=== PATIENT | female | born 1980 | race Caucasian/White ===

== ENCOUNTER 2021-01-31 21:07 | Emergency (ER) | payer MEDICAID, SELFPAY ==
[2021-01-31 21:07] VITALS: BP 109/71; PULSE 85; RESP 16; TEMP 36.2; O2SAT 97; BMI 25.5
--- NOTE | 2021-01-31 21:26 | RAD_ITS ---
HISTORY: Trauma, fall EXAMINATION/TECHNIQUE: XR Pelvis 1 or 2 Views: AP pelvis COMPARISON: None FINDINGS: PELVIC BONES: No displaced fracture, destructive or sclerotic lesions. Note that overlapping bowel shadows may however obscure fine detail. Sacroiliac joints are unremarkable. No widening of the pubic symphisis. HIPS: The articular structures are unremarkable. No displaced fracture seen in this frontal view. SOFT TISSUES: No soft tissue swelling or gas. RAD/Pelvis 1 or 2 Views IMPRESSION: No evidence of displaced pelvic or hip fracture. at 2201 Reported and signed by: Iker Villegas MD Electronically Signed: Iker Villegas MD at 22:00 EDT Tel , Service support ,
--- NOTE | 2021-01-31 21:26 | RAD_ITS ---
HISTORY: Trauma, fall EXAMINATION/TECHNIQUE: XR Ankle Min 3 Views: COMPARISON: None FINDINGS: BONES/JOINTS: No acute fracture or dislocation. Preservation of the joint spaces. No sclerotic or destructive changes observed. SOFT TISSUES: No soft tissue swelling or gas. No radiopaque foreign body. RAD/Ankle min 3 Views IMPRESSION: No acute bony abnormality. at 2200 Reported and signed by: Iker Villegas MD Electronically Signed: Iker Villegas MD at 21:59 EDT Tel , Service support ,
--- NOTE | 2021-01-31 21:26 | RAD_ITS ---
HISTORY: Trauma, fall EXAMINATION/TECHNIQUE: XR Spine Lumbar 2 or 3 Views: 3 views COMPARISON: None FINDINGS: VERTEBRAE: Preserved vertebral body height. No acute fracture. No spondylolisthesis. Preservation of the normal lumbar lordosis. DISCS: Disc spaces are maintained. INCLUDED ABDOMEN: Included bowel gas pattern is non-obstructive. RAD/Lumbar Spine 2 or 3 Views IMPRESSION: No acute findings. at 2159 Reported and signed by: Iker Villegas MD Electronically Signed: Iker Villegas MD at 21:58 EDT Tel , Service support ,
--- NOTE | 2021-01-31 22:30 | RAD_ITS ---
HISTORY: Trauma, injury EXAMINATION/TECHNIQUE: XR Tibia/Fibula 2 Views: COMPARISON: None FINDINGS: BONES/JOINTS: No acute fracture or dislocation. Preservation of the joint spaces. No sclerotic or destructive changes observed. SOFT TISSUES: No soft tissue swelling or gas. No radiopaque foreign body. RAD/Tibia & Fibula 2 Views IMPRESSION: No acute bony abnormality. at 2341 Reported and signed by: Iker Villegas MD Electronically Signed: Iker Villegas MD at 23:40 EDT Tel , Service support ,
--- NOTE | 2021-01-31 22:53 | EX.ED.DYSGE1 ---
HPI History of Present Illness Chief Complaint: Fall Informant: patient Narrative Narrative: .40-year-old female slipped in the shower falling down onto her buttocks injuring the right ankle and her buttock/low back. Patient denies any loss of conscious. No bleeding. PFSH [facility] Medical History (Updated 01/31/21 @ 22:[address] Stefan Wright DO) Depression Home Medications escitalopram oxalate 20 mg DAILY 01/31/21 [History Last Taken Unknown] levonorgestrel-ethinyl estrad 1 tab DAILY 01/31/21 [History Last Taken Unknown] Allergy/AdvReac Type Severity Reaction Status Date / Time No Known Allergies Allergy Verified 01/31/21 21:07 no surgical history Social History (Updated 01/31/21 @ 22:[address] Stefan Wright DO) Smoking Status: Never smoker substance use type: does not use ROS ROS ED Constitutional Constitutional ED: Denies chills or weight loss Eyes Eyes: Denies change in vision or diplopia ENT ENT ED: Denies ear pain, rhinorrhea or sore throat Cardiovascular Cardiovascular: Denies chest pain, orthopnea, palpitations or racing heartbeat Respiratory/Chest Respiratory/Chest: Denies cough, dyspnea or orthopnea Gastrointestinal Gastrointestinal: Denies abdominal pain, diarrhea, nausea or vomiting Genitourinary Genitourinary ED: Denies dysuria, hematuria or urinary frequency Musculoskeletal Musculoskeletal: Reports back pain and other Details: Left ankle pain ; Denies arthralgias or myalgias Integumentary Denies abscess or rash Neurologic Neurologic: Denies headache(s) or weakness Psychiatric Psychiatric: Denies anxiety, depression, suicidal ideation or suicidal thoughts Endocrine Endocrinology: Denies polydipsia, polyphagia or polyuria Allergic/Immunologic Allergic/Immunologic ED: Denies mouth swelling, tongue swelling or urticaria EXAM Physical Exam Const Vital Signs: 01/31/21 21:07 01/31/21 22:30 Temperature 97.1 F L Temperature Source Temporal Pulse Rate 85 Respiratory Rate 16 Respiratory Effort Normal Blood Pressure 109/71 Blood Pressure Mean 83 Pulse Ox 97 Oxygen Delivery Method Room Air Positive well nourished and well developed General Appearance ED: well developed HEENT Reports normocephalic, head/scalp atraumatic and moist mucous membranes Eyes PERRL and EOMs intact bilaterally Neck no lymphadenopathy, supple and no JVD Resp normal respiratory effort and clear to auscultation bilaterally Cardio regular rate, regular rhythm and no murmurs GI normal to inspection, nondistended, normoactive bowel sounds and non-tender Palpation: soft Back/Spine no CVA tenderness and normal ROM Back/Spine Narrative: Tender to palpation over the lower lumbar sacral region. No deformity no ecchymosis seen. Extremity Extremity Narrative: Patient has tenderness to palpation over the anterior surface of the left ankle and the distal left leg. She also has tenderness over the fibular head General Extremety ED: Negative for edema General Extremity: Negative for edema Neuro oriented x3 and CN's II-XII intact bilaterally Sensorium / Orientation: alert Motor Exam: strength 5/5 throughout Psych mental status grossly normal Mood & Affect: Negative for depressed or tearful Skin no rashes or lesions noted and no wounds MDM MDM MDM Narrative Medical decision making narrative: My interpretation of the plain films of the tib-fib, ankle, lumbar spine, and pelvis is negative for fracture. Patient will have Alex wrap and crutches. Follow-up as needed. Radiography Diagnostic Testing: Radiology Impression Ankle X-Ray 01/31/21 21:26 IMPRESSION: No acute bony abnormality. at 2200 Reported and signed by: Iker Villegas MD Electronically Signed: Iker Villegas MD at 21:59 EDT Tel , Service support , Lumbar Spine X-Ray 01/31/21 21:26 IMPRESSION: No acute findings. at 2159 Reported and signed by: Iker Villegas MD Electronically Signed: Iker Villegas MD at 21:58 EDT Tel , Service support , Pelvis X-Ray 01/31/21 21:26 IMPRESSION: No evidence of displaced pelvic or hip fracture. at 2201 Reported and signed by: Iker Villegas MD Electronically Signed: Iker Villegas MD at 22:00 EDT Tel , Service support , Discharge Plan Triage Chief Complaint: Fall ED Provider: Stefan Wright Dx/Rx/DC Orders Clinical Impression: High ankle sprain Instructions: ED Ankle Sprain (Adult) Prescriptions: No Action levonorgestrel-ethinyl estrad 0.15-0.03 mg tablet 1 tab DAILY RF: 0 escitalopram oxalate 10 mg tablet 20 mg DAILY RF: 0 Primary Care Provider: Tanika Bella NP Referrals: Tanika Bella NP, CERTIFIED REGISTERED NURSE ANESTHETIST-C [Primary Care Provider] - 10-14 Days if not better Disposition Disposition: Home, self care
[2021-01-31 23:14] VITALS: PULSE 74; RESP 16
== END 2021-01-31 23:14 | disposition home or self-care (01) ==
PROVIDERS: Emergency Provider Emergency Medicine; PCP Nurse Practitioner Primary Care
DX: S93.401A Sprain of unspecified ligament of right ankle, initial encounter (principal); F32.9 Major depressive disorder, single episode, unspecified; W01.0XXA Fall on same level from slipping, tripping and stumbling without subsequent striking against object, initial encounter; Z79.899 Other long term (current) drug therapy; Z79.3 Long term (current) use of hormonal contraceptives
CPT/HCPCS: 72100; 72170; 73590; 73610; 99283

== ENCOUNTER 2021-03-21 17:17 | Emergency (ER) | payer MEDICAID, SELFPAY ==
[2021-03-21 17:19] VITALS: BP 101/71; PULSE 91; RESP 14; TEMP 36.1; O2SAT 97; BMI 25.4
--- NOTE | 2021-03-21 17:33 | ED.VIS.LOWEX ---
HPI History of Present Illness Chief Complaint: Lower Extremity Injury Informant: patient and spouse/S.O. Narrative Narrative: 41-year-old female presents to the emergency room with left ankle injury. Patient was going the stairs when she slipped and fell. She states that she felt a crack in her ankle. She notes pain over the anterior aspect of the ankle with some mild swelling. Patient was seen last month with ankle sprain and already has crutches. She states that that injury healed itself up well. PFSH PFS Medical History Depression Home Medications escitalopram oxalate 20 mg DAILY 01/31/21 [History Last Taken Unknown] levonorgestrel-ethinyl estrad 1 tab DAILY 01/31/21 [History Last Taken Unknown] Allergy/AdvReac Type Severity Reaction Status Date / Time No Known Allergies Allergy Verified 03/21/21 17:18 Social History Smoking Status: Never smoker substance use type: does not use ROS ROS ED Constitutional Constitutional ED: Denies chills or weight loss Eyes Eyes: Denies change in vision or diplopia ENT ENT ED: Denies ear pain, rhinorrhea or sore throat Cardiovascular Cardiovascular: Denies chest pain, orthopnea, palpitations or racing heartbeat Respiratory/Chest Respiratory/Chest: Denies cough, dyspnea or orthopnea Gastrointestinal Gastrointestinal: Denies abdominal pain, diarrhea, nausea or vomiting Genitourinary Genitourinary ED: Denies dysuria, hematuria or urinary frequency Musculoskeletal Musculoskeletal: Reports other Details: See history of present illness ; Denies arthralgias or myalgias Integumentary Denies abscess or rash Neurologic Neurologic: Denies headache(s) or weakness Psychiatric Psychiatric: Denies anxiety, depression, suicidal ideation or suicidal thoughts Endocrine Endocrinology: Denies polydipsia, polyphagia or polyuria Allergic/Immunologic Allergic/Immunologic ED: Denies mouth swelling, tongue swelling or urticaria EXAM Physical Exam Const Vital Signs: 03/21/21 17:19 Temperature 97 F L Temperature Source Temporal Pulse Rate 91 Respiratory Rate 14 Blood Pressure 101/71 Blood Pressure Mean 81 Pulse Ox 97 Oxygen Delivery Method Room Air Positive well nourished and well developed General Appearance ED: well developed HEENT Reports normocephalic, head/scalp atraumatic and moist mucous membranes Eyes PERRL and EOMs intact bilaterally Neck no lymphadenopathy, supple and no JVD Resp normal respiratory effort and clear to auscultation bilaterally Cardio regular rate, regular rhythm and no murmurs GI normal to inspection, nondistended, normoactive bowel sounds and non-tender Palpation: soft Back/Spine no CVA tenderness and normal ROM Extremity Extremity Narrative: No fibular head tenderness. No fifth metatarsal pain. There is some mild swelling anteriorly over the distal left leg and ankle. No obvious deformity. General Extremety ED: Negative for edema General Extremity: Negative for edema Neuro oriented x3 and CN's II-XII intact bilaterally Sensorium / Orientation: alert Motor Exam: strength 5/5 throughout Psych mental status grossly normal Mood & Affect: Negative for depressed or tearful Skin no rashes or lesions noted and no wounds MDM MDM MDM Narrative Medical decision making narrative: My interpretation of the plain films of the left ankle is no acute fracture. Patient Aircast placed. Crutches as needed. Radiography Diagnostic Testing: Radiology Impression Ankle X-Ray 03/21/21 17:40 IMPRESSION: Normal x-ray examination of the ankle. Electronically Signed: Dm Cavazos MD at 18:22 EDT , Service support , Discharge Plan Triage Chief Complaint: Lower Extremity Injury ED Provider: Stefan Wright Dx/Rx/DC Orders Clinical Impression: Left ankle sprain Instructions: ED Ankle Sprain (Adult) Prescriptions: No Action levonorgestrel-ethinyl estrad 0.15-0.03 mg tablet 1 tab DAILY RF: 0 escitalopram oxalate 10 mg tablet 20 mg DAILY RF: 0 Primary Care Provider: Tanika Bella NP Referrals: Nereida Govea DPM [STAFF PHYSICIAN] - 10-14 Days if not better Tanika Bella NP, LENS BLOCKER-C [Primary Care Provider] - Disposition Disposition: Home, Self Care
--- NOTE | 2021-03-21 17:40 | RAD_ITS ---
STUDY: X-RAY - LEFT ANKLE REASON FOR EXAM: Female, 41 years old. injury TECHNIQUE: 3 view(s) of the ankle. COMPARISON: None. FINDINGS: Normal visualized distal tibia and fibula. Normal medial and lateral malleoli. Normal tibiotalar articulation and ankle mortise. Normal visualized talus and calcaneus. The visualized subtalar, talonavicular, calcaneocuboid and tarsal articulations are normal. There is no demonstrated fracture. The soft tissue structures are unremarkable. RAD/Ankle min 3 Views IMPRESSION: Normal x-ray examination of the ankle. Electronically Signed: Dm Cavazos MD at 18:22 EDT , Service support ,
== END 2021-03-21 18:58 | disposition home or self-care (01) ==
PROVIDERS: Emergency Provider Emergency Medicine; PCP Nurse Practitioner Primary Care
DX: S93.402A Sprain of unspecified ligament of left ankle, initial encounter (principal); W10.9XXA Fall (on) (from) unspecified stairs and steps, initial encounter; Y93.9 Activity, unspecified; Y92.9 Unspecified place or not applicable; Y99.9 Unspecified external cause status
CPT/HCPCS: 73610; 99283

== ENCOUNTER 2021-03-29 18:05 | Emergency (ER) | payer MEDICAID, SELFPAY ==
[2021-03-29 18:06] VITALS: BP 125/105; PULSE 89; RESP 14; TEMP 36.3; O2SAT 99; BMI 25.7
--- NOTE | 2021-03-29 20:17 | EDS_ITS ---
HPI History of Present Illness Chief Complaint: Lower Extremity Injury Narrative Narrative: Patient presenting for evaluation secondary to leg pain. Patient states that about a week ago she suffered a sprained left ankle. Since then she has been wearing an Aircast, and performing conservative management measures. Patient states that on her way to work today she had a sudden onset of a severe crampy feeling over the anterior portion of her rincon. States that this was not associated with calf cramping. She denies any numbness or weakness. She denies any new injuries. Patient was concerned about this new onset of pain, so she presented to the emergency department for further evaluation. [facility] Medical History Depression Home Medications escitalopram oxalate 20 mg DAILY 01/31/21 [History Last Taken Unknown] levonorgestrel-ethinyl estrad 1 tab DAILY 01/31/21 [History Last Taken Unknown] Allergy/AdvReac Type Severity Reaction Status Date / Time No Known Allergies Allergy Verified 03/29/21 18:08 Social History Smoking Status: Never smoker substance use type: does not use ROS ROS ED Constitutional Constitutional ED: Denies fever(s) Cardiovascular Cardiovascular: Denies chest pain Respiratory/Chest Respiratory/Chest: Denies dyspnea Musculoskeletal Musculoskeletal: Reports myalgias Integumentary Denies rash Neurologic Neurologic: Denies paresthesias or weakness Hematologic/Lymphatic Hematologic/Lymphatic: Denies easy bleeding or easy bruising EXAM Physical Exam Const Vital Signs: 03/29/21 18:06 Temperature 97.3 F L Temperature Source Temporal Pulse Rate 89 Respiratory Rate 14 Blood Pressure 125/105 H Blood Pressure Mean 111 Pulse Ox 99 Oxygen Delivery Method Room Air Positive well nourished and well developed General Appearance ED: well developed and NAD Neck full ROM Resp normal respiratory effort Cardio regular rate and regular rhythm Extremity Extremity Narrative: Examination the patient's left lower extremity shows minimal pain over the rincon area of the left leg. Normal dorsiflexion plantarflexion. Normal distal sensation and pulses. Normal capillary refill. No swelling of the ankle or tenderness to palpation. Calf is supple no palpable cord. No pain behind the knee or up in the thigh or groin area. Neuro oriented x3 Sensorium / Orientation: alert MDM MDM MDM Narrative Medical decision making narrative: Patient is presenting with rincon pain status post a ankle sprain. She has no signs or symptoms that this is associated with a new injury, this is not neurologic, this is not vascular she has great pulses not concerned for the possibility of DVT given the location of the patient's pain. Likely I believe the patient has either a tendinitis or muscle strain secondary to an antalgic gait. Patient will be placed in a walking boot. She was recommended continued conservative management measures. Patient was discharged in stable Discharge Plan Triage Chief Complaint: Lower Extremity Injury ED Provider: Chay Liang Dx/Rx/DC Orders Clinical Impression: Left ankle sprain Instructions: ED Ankle Sprain (Adult) Prescriptions: No Action levonorgestrel-ethinyl estrad 0.15-0.03 mg tablet 1 tab DAILY RF: 0 escitalopram oxalate 10 mg tablet 20 mg DAILY RF: 0 Primary Care Provider: Tanika Bella NP Referrals: Tanika Bella NP, EARLY CHILDHOOD SPECIAL EDUCATOR-C [Primary Care Provider] - As Needed Disposition Disposition: Home, Self Care
== END 2021-03-29 20:44 | disposition home or self-care (01) ==
PROVIDERS: Emergency Provider Emergency Medicine; PCP Nurse Practitioner Primary Care
DX: S93.402A Sprain of unspecified ligament of left ankle, initial encounter (principal); X58.XXXA Exposure to other specified factors, initial encounter; Y93.9 Activity, unspecified; Y92.9 Unspecified place or not applicable; Y99.9 Unspecified external cause status
CPT/HCPCS: 99283

== ENCOUNTER 2021-07-26 05:28 | Day surgery (SDC) | payer MEDICAID, SELFPAY ==
--- NOTE | 2021-07-25 17:17 | HP.PCM_ITS ---
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: No Is patient in pain?: No Allergies No Known Allergies Allergy (Verified 07/19/21 10:49) Medications multivitamin no.47-iron fum 27 mg-folate no.1 1 mg-dha 300 mg capsule 1 cap PO DAILY 07/11/21 [History Confirmed 07/25/21] Post menopausal: No Patient : Yes : No PFSH Medical History Bruising Depression High ankle sprain Left ankle sprain Non-smoker Surgical History History of dental surgery Family History Mother Diabetes Hypertension Father Diabetes Hypertension Social History household members: family housing: house number of children: 2 current occupational status: employed current occupation: [employer] pets and animals: Yes Smoking Status: Never smoker second hand exposure: No alcohol intake: never substance use type: does not use seatbelt use: always do you feel safe at home: Yes additional social history: - [place] follow up D&C SAB Details: VIRGINIA GUTIERREZ is a 41 year old who presents for follow up miscarriage. She tried 2 doses of cytotec with minimal bleeding. She is ready for a D&C if ultrasound today shows retained products Pregancy History 3 Elective abortions Hx Para 2 Spontaneous abortions 1 Hx # Term Pregnancies Ectopic pregnancies Hx # Pregnancies Multiple births # of living children 2 Past Pregnancies Del. Date Name GA/Weeks Outcome Route Bth Weight Gen Labor Lgth Anesthesia Del Locatn Provider FOB 03/30/11 Iftikhar 41 live - full term 7lbs 7oz Male 16 hours epidural [facility] Dr. Anand Beckham 11/07/14 Link 40 live - full term 7lbs 5oz Male 7-8 hours epidural Xin Beckham Delivery Date: 03/30/11 Ovarian torsion at 7 months Deja Chavez Delivery Date: 11/07/14 no complications Deja Chavez ROS Const ROS Unobtainable: All systems reviewed & are unremarkable except as noted in H Resp Resp: Reports system reviewed and no additional complaints, except as documented; Denies cough GI GI: Reports as per HPI Psych Psych: Reports system reviewed and no additional complaints, except as documented Exam Const General: cooperative, healthy appearing, comfortable and no acute distress Resp Effort & Inspection: normal respiratory effort Speculum Exam - Vagina: normal appearance of the vagina Speculum Exam - Cervix: normal appearance of the cervix Bimanual Exam- Vagina & Uterus: normal bimanual exam Other: Bedside ultrasound still shows the presence of a 6 week IUP without heart tones. Skin General: no rashes or lesions noted Psych Appearance: grossly normal Speech and Movement: speech and movement normal Coding Level of Care Code Off vis,est,level 3 Diagnoses Incomplete O03.4 Assessment and Plan Assessment and Plan (1) Incomplete : Status: Acute Plan - Dr. Virginia Babcock DO: Discussed risks of surgery including risks of anesthesia, bleeding, infection, uterine perforation, possible laparoscopy if this happens due to risk of injury to bowel, bladder or vasculature. plan for suction D&C tomorrow am (07/26/2021) rx's for motrin and percocet sent to pharmacy for after care. Consent form signed. UPDATE- I have seen the patient and performed any clinically relevant updates to the history and physical exam. Virginia Babcock DO
[2021-07-26 06:30] VITALS: BP 109/70; PULSE 76; RESP 18; TEMP 36.9; O2SAT 100; BMI 27.8
[2021-07-26] MEDS: Lactated Ringers 1,000 ML 15 ML IV (06:35)
[2021-07-26 06:48] LABS: Hematocrit 39.1 % (37-47); Hemoglobin 12.8 g/dL (12.0-15.0); Mean Corp Hgb Conc 32.7 g/dL (32-36); Mean Corpuscular Hgb 28.6 pg (27.0-32.0); Mean Corpuscular Volume 87.5 fL (81-99); Mean Platelet Vol. 9.7 fl (6.2-12.0); Platelet Count 217 K/mm3 (150-450); RBC Distribution Width CV 13.3 % (11.6-14.6); RBC Distribution Width SD 42.8 fl (35.1-43.9); Red Blood Count 4.47 M/mm3 (4.2-5.4); White Blood Count 6.3 K/mm3 (4.4-11.0)
--- NOTE | 2021-07-26 07:22 | PCM.DC ---
Discharge Instructions Diet Discharge Diet: No restrictions Activity Discharge Activity: Return to Normal Activity, May Shower and May Take a Tub Bath (after 1 week) May resume sexual activity in: 1-2 weeks Weight Bearing Status: Weight bearing as tolerated Lifting Restrictions: none Dressing / Incision Call your doctor if you observe: Fever of 101 or Higher, Using more than 1 pad per hour, Shortness of breath and Uncontrolled pain Follow Up Care Please Follow Up With: Constanza Babcock DO When: Call [phone] to schedule appointment. Test Results: Test results from this visit will be discussed in further detail at your follow-up appointment, if applicable. Discharge Plan Admission Attending Provider: Constanza Babcock Primary Care Provider: Tanika Bella NP Discharge Orders/Prescriptions Prescriptions: No Action PNV-DHA 27 mg iron-1 mg -300 mg capsule 1 cap PO DAILY RF: 0 ibuprofen 800 mg tablet 800 mg PO Q8H PRN (Reason: pain) 7 Days Qty: 21 RF: 0 oxycodone-acetaminophen [Percocet] 5-325 mg tablet 1 tab PO Q4H PRN (Reason: pain) 3 Days Qty: 18 RF: 0
--- NOTE | 2021-07-26 07:30 | POC_PTH ---
PATIENT: VIRGINIA GUTIERREZ [place] [facility] [place] U[place][id number] AGE/SX: 41/F ROOM: RE07/26/[address]: Dr. Virginia Babcock DO : 1980 BED: DIS: 07/26/2021 SPEC #: [id number] RECD: 07/26/21 08:17 STATUS: WHITNEY MOONEYDorota #: [id number] KIARA: 07/26/21 07:[address]: Virginia Babcock DEPT: SURGICAL PATHOLOGY RECD BY: Keira Lira ENTERED: 07/26/21 09:43 SP TYPE: PROD CONC OTHR DR: Tanika Bella, CHIP Tissues: Product of conception, NOS Procedures: Surgery Specimen Level IV HEADER OPERATION: Suction dilation and curettage PRE-OP DIAGNOSIS: Incomplete TISSUE SUBMITTED: Products of conception MICROSCOPIC DIAGNOSIS Products of conception: Decidua and immature chorionic villi (products of conception). SJ:анна 07/27/2021 MICROSCOPIC DESCRIPTION Slides are reviewed. GROSS DESCRIPTION Received in fixative is one container labeled with the patient's name and designated products of conception. The specimen consists of multiple irregular fragments of gonzalez-pink soft tissue that in aggregate measure 5 x 5 x 2 cm. tissue is not identified. Waiter/Waitress Cabin Class tissue is submitted in two cassettes. / JACKSON:анна 07/26/21 TC:5 CPT: 19235
[2021-07-26] MEDS: Lidocaine 1% (20 ml mdv) 20 ML Vial (07:39)
[2021-07-26 08:05] VITALS: BP 100/69; BP 109/70; PULSE 76; RESP 18; TEMP 36.2; O2SAT 100
[2021-07-26 08:10] VITALS: BP 105/71; BP 109/70; PULSE 67; RESP 18; O2SAT 100
[2021-07-26 08:15] VITALS: BP 109/70; BP 91/64; PULSE 68; RESP 18; O2SAT 100
[2021-07-26 08:20] VITALS: BP 100/58; BP 109/70; PULSE 66; RESP 18; TEMP 36.4; O2SAT 100
--- NOTE | 2021-07-26 08:33 | PCM.OP.BLANK ---
Problems Associated Problem List Diagnoses (1) Incomplete : (2) AMA (advanced maternal age) multigravida 35+: (3) : (4) Supervision of high risk , antepartum: Operative Report Date of Procedure: 07/26/21 Pre-op diagnosis: with incomplete measuring 6 weeks, failed medical management Pos-op diagnosis: with incomplete measuring 6 weeks, failed medical management Procedure: Suction dilation and Curettage Surgeon: Dr. Constanza Babcock DO Author: computer support technician EBL: 50cc Urine output:50cc fluids:600cc crystalloid Anesthesia: MAC/Local Complications: none Specimen removed: Products of conception Patient was taken to the operating room and placed under MAC local anesthesia. She was prepped and draped in the normal sterile fashion the dorsal lithotomy position. Bladder was drained of clear urine and anterior lip of the cervix was grasped and the uterus sounded to 8cm. Cervix was progressively dilated to allow passage of a 8 curved suction curette. Progressive passes were made removing the retained products of conception without complication. Sharp curettage confirmed complete removal of the retained products. All instruments were removed from the vagina and excellent hemostasis was noted and the patient was taken to recovery in stable condition. Multi Select Codes Urinary/Genital Urinary/Genital CPT Codes: 52804 Surg Trtmt missed Ab 1TM
[2021-07-26 08:45] VITALS: BP 109/70; BP 93/61; PULSE 66; RESP 16; TEMP 36.6; O2SAT 100
== END 2021-07-26 08:54 | disposition home or self-care (01) ==
LOC: SDC 05:29 → AC 07:40
PROVIDERS: PCP Nurse Practitioner Primary Care; Referring Provider Obstetrics & Gynecology; Visit Provider Obstetrics & Gynecology
PROC: (CPT 59812; principal; 2021-07-26 07:15)
DX: O03.4 Incomplete spontaneous abortion without complication (principal); O09.521 Supervision of elderly multigravida, first trimester; O09.91 Supervision of high risk pregnancy, unspecified, first trimester; Z3A.01 Less than 8 weeks gestation of pregnancy
CPT/HCPCS: 59812; 85027; 86850; 86900; 86901; 87426; 88305; J7120; J2405

== ENCOUNTER 2022-06-04 14:39 | Emergency (ER) | payer BC, MEDICAID, SELFPAY ==
[2022-06-04 14:40] VITALS: BP 109/68; PULSE 74; RESP 16; TEMP 36.5; O2SAT 97; BMI 27.4
--- NOTE | 2022-06-04 14:58 | CT_ITS ---
STUDY: CT CERVICAL SPINE WITHOUT CONTRAST REASON FOR EXAM: Female, 42 years old. Injury/Pain RADIATION DOSAGE (If Supplied By Facility): CTDIvol = ( 20.05 ) mGy, DLP = ( 356.72 ) mGycm TECHNIQUE: High resolution transaxial imaging was performed without contrast material. Sagittal and coronal images were reconstructed. Individualized dose optimization techniques were used for this CT. COMPARISON: None FINDINGS: Normal craniovertebral junction. Normal anterior atlantoaxial articulation. Normal odontoid process. There is straightening of the normal cervical lordosis. Normal vertebral bodies and posterior osseous elements. C2-3: Normal endplates. Normal disc height and morphology. Normal central canal and intervertebral neuroforamina. C3-4: Normal endplates. Normal disc height and morphology. Normal central canal and intervertebral neuroforamina. C4-5: Normal endplates. Normal disc height and morphology. Normal central canal and intervertebral neuroforamina. C5-6: Normal endplates. Normal disc height and morphology. Normal central canal and intervertebral neuroforamina. C6-7: Normal endplates. Normal disc height and morphology. Normal central canal and intervertebral neuroforamina. C7-T1: Normal endplates. Normal disc height and morphology. Normal central canal and intervertebral neuroforamina. Normal visualized soft tissue structures. CT/Spine Cervical without Contras IMPRESSION: Straightening of the normal cervical lordosis. Electronically Signed: Rajiv Mckeon MD at 15:42 EDT ,
--- NOTE | 2022-06-04 14:58 | CT_ITS ---
STUDY: CT BRAIN WITHOUT CONTRAST REASON FOR EXAM: Female, 42 years old. Fall down 12 steps. Loss of consciousness. RADIATION DOSAGE (If Supplied By Facility): CTDIvol = ( 44.99 ) mGy, DLP = ( 863.60 ) mGycm TECHNIQUE: Transaxial CT imaging of the brain was performed without administration of intravenous contrast material. Individualized dose optimization techniques were used for this CT. COMPARISON: Comparison is made with prior study dated 02/28/2013. FINDINGS: Normal soft tissue structures. Normal calvarium. Normal size ventricles and extra-axial spaces for the patient''s age. Normal white matter tracts of the cerebral hemispheres. Normal basal ganglia and thalami. Normal brainstem. Normal cerebellum. There is no intracranial hemorrhage. There are no findings of an acute ischemic infarction. Normal visualized paranasal sinuses. CT/Brain/Head without Contrast IMPRESSION: Normal unenhanced CT scan of the brain. Electronically Signed: Rajiv Mckeon MD at 15:41 EDT ,
--- NOTE | 2022-06-04 15:20 | RAD_ITS ---
STUDY: X-RAY - PELVIS AND LEFT HIP REASON FOR EXAM: Female, 42 years old. Patient fell down 14 steps. TECHNIQUE: 3 views of the pelvis and hip. COMPARISON: Comparison is made with prior study dated 01/31/2021. FINDINGS: There is a non-specific bowel gas pattern. 90 is seen within the pelvis. Normal bilateral iliac wings, sacroiliac joints and visualized sacrum. Normal bilateral superior and inferior pubic rami. There is narrowing with sclerosis of the pubic symphysis. Normal bilateral ischial tuberosities. Normal visualized femoral head. Normal acetabulum. Normal hip joint. RAD/HIP, UNI W/ Pelvis 2-3 Views IMPRESSION: Normal x-ray examination of the pelvis and hip. Electronically Signed: Rajiv Mckeon MD at 15:44 EDT ,
--- NOTE | 2022-06-04 15:20 | RAD_ITS ---
STUDY: X-RAY - LEFT TIBIA AND FIBULA REASON FOR EXAM: Female, 42 years old. Injury/Pain TECHNIQUE: 4 view(s) of the tibia and fibula were obtained. COMPARISON: None. FINDINGS: Normal visualized tibia. Normal visualized fibula. The soft tissue structures are unremarkable. RAD/Tibia & Fibula 2 Views IMPRESSION: Normal x-ray examination of the tibia and fibula. Electronically Signed: Rajiv Mckeon MD at 15:45 EDT ,
--- NOTE | 2022-06-04 15:20 | RAD_ITS ---
STUDY: X-RAY - LEFT KNEE REASON FOR EXAM: Female, 42 years old. History of fall. TECHNIQUE: 4 view(s) of the knee. COMPARISON: None. FINDINGS: Normal visualized distal femur. Normal visualized proximal tibia and fibula. Normal proximal tibiofibular articulation. Normal medial femorotibial compartment. Normal lateral femorotibial compartment. Normal patellofemoral articulation. The soft tissue structures are unremarkable. RAD/Knee 4 or More Views IMPRESSION: Normal x-ray examination of the knee. Electronically Signed: Rajiv Mckeon MD at 15:45 EDT ,
--- NOTE | 2022-06-04 15:58 | EX.ED.GENINJ ---
HPI History of Present Illness Chief Complaint: Trauma Informant: patient Onset/Context/Timing Onset: Today Mechanism/Context: Fall Quality of Pain: Aching Location: Head, neck, left hip, left knee, left lower leg Worsened by: Nothing Relieved by: Nothing Associated Symptoms Associated Symptoms: Positive for Loss of consciousness; Negative for Parasthesias, Weakness, Loss of function, Inability to ambulate or Amnesia Length of loss of consciousness: Brief Narrative Narrative: Patient presents after a fall that occurred today. Patient was sitting on her basement step and reach forward to grab her shoes. Patient states she remembers leaning forward and then remembers waking up at the bottom of the steps. Patient thinks she had a brief loss of consciousness. Patient denies any paresthesias or weakness. Patient complains of pain in her head, neck, left hip, left knee, and left lower leg. Patient describes it as aching. Patient states nothing makes it better and nothing makes it worse. Patient denies any other injuries. PFSH PFSH Medical History Bruising Contraceptive management Depression High ankle sprain Left ankle sprain Non-smoker Home Medications levonorgestrel 20 mcg/24 hours (8 yrs) 52 mg intrauterine device (Mirena) 1 insert intrauterine ONCE 10/25/21 [History Last Taken Unknown] escitalopram oxalate 20 mg tablet 20 mg PO DAILY 06/04/22 [History Last Taken Unknown] Allergy/AdvReac Type Severity Reaction Status Date / Time No Known Allergies Allergy Verified 11/02/21 15:21 Family History Mother Diabetes Hypertension Father Diabetes Hypertension Surgical History H/O dilation and curettage History of dental surgery Social History household members: family housing: house number of children: 2 current occupational status: employed 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 pets and animals: Yes Smoking Status: Never smoker second hand exposure: No alcohol intake: never substance use type: does not use seatbelt use: always do you feel safe at home: Yes additional social history: - [place] ROS ROS ED Constitutional Constitutional ED: Denies chills or fever(s) Eyes Eyes: Denies blurry vision or change in vision ENT ENT ED: Denies rhinorrhea or sore throat Cardiovascular Cardiovascular: Denies chest pain or palpitations Respiratory/Chest Respiratory/Chest: Denies cough or dyspnea Gastrointestinal Gastrointestinal: Denies nausea or vomiting Genitourinary Genitourinary ED: Denies dysuria or hematuria Musculoskeletal Musculoskeletal: Reports back pain and neck pain Integumentary Denies abscess or rash Neurologic Neurologic: Reports headache(s); Denies weakness Allergic/Immunologic Allergic/Immunologic ED: Denies mouth swelling or urticaria EXAM Physical Exam Const Vital Signs: 06/04/22 14:40 Temperature 97.7 F L Temperature Source Temporal Pulse Rate 74 Respiratory Rate 16 Blood Pressure 109/68 Blood Pressure Mean 81 Pulse Ox 97 Oxygen Delivery Method Room Air Positive well nourished and well developed General Appearance ED: well developed HEENT Reports moist mucous membranes HEENT Narrative: There is mild diffuse tenderness across the head. There is no edema or ecchymosis. tenderness Neck supple and no JVD Neck Narrative: There is tenderness over the cervical spine paraspinal muscles. There is no bony crepitance or step-off. General: tenderness Resp normal respiratory effort and clear to auscultation bilaterally Cardio regular rate, regular rhythm and no murmurs GI normal to inspection, nondistended, normoactive bowel sounds and non-tender Palpation: soft Extremity normal to inspection Extremity Narrative: There is tenderness over the left knee and lower leg. There is no edema or ecchymosis. There is no obvious deformity noted. Range of motion was slightly limited in flexion of the knee secondary to pain. There is mild tenderness over the left hip. There is no deformity. There is no pain with internal and external rotation. General Extremety ED: Yes tenderness; Negative for edema General Extremity: Negative for edema Neuro oriented x3, CN's II-XII intact bilaterally and no sensory deficits noted Sensorium / Orientation: alert Motor Exam: strength 5/5 throughout Psych mental status grossly normal Skin no rashes or lesions noted MDM MDM MDM Narrative Medical decision making narrative: CT scan of the brain was obtained. There is no acute intracranial abnormality. This was interpreted by the radiologist and reviewed by myself. CT scan of the cervical spine was obtained. There is no acute fracture or spondylolisthesis. This was interpreted by the radiologist and reviewed by myself. X-rays of the left tibia and fibula were obtained. There are 4 views. On my interpretation, there is no acute fracture or dislocation. There is no soft tissue swelling. Radiologist also interpreted the x-rays and agrees. X-rays of the left knee were obtained. There are 4 views. On my interpretation, there is no acute fracture or dislocation. There is no joint effusion. Radiologist also interpreted the x-rays and agrees. X-rays of the left hip were obtained. There are 3 views. On my interpretation, there is no acute fracture or dislocation. There is no soft tissue swelling. Radiologist also interpreted the x-rays and agrees. On reevaluation, patient is feeling better. Patient was advised of her findings. Cervical collar was removed. Patient was able to ambulate to the bathroom without difficulty. Patient was given head injury instructions. Patient was given instructions to ice and elevate the left knee and lower leg. Patient was instructed to follow-up with her primary care physician in 5 to 7 days. Patient understood and was agreeable with the plan. All questions were answered. Radiography Diagnostic Testing: Clinical Impression(s) from Imaging Studies Brain CT 06/04/22 14:58 IMPRESSION: Normal unenhanced CT scan of the brain. Electronically Signed: Rajiv Mckeon MD at 15:41 EDT , Cervical Spine CT 06/04/22 14:58 IMPRESSION: Straightening of the normal cervical lordosis. Electronically Signed: Rajiv Mckeon MD at 15:42 EDT , Hip/Pelvis X-Ray 06/04/22 15:20 IMPRESSION: Normal x-ray examination of the pelvis and hip. Electronically Signed: Rajiv Mckeon MD at 15:44 EDT , Knee X-Ray 06/04/22 15:20 IMPRESSION: Normal x-ray examination of the knee. Electronically Signed: Rajiv Mckeon MD at 15:45 EDT , Tibia/Fibula X-Ray 06/04/22 15:20 IMPRESSION: Normal x-ray examination of the tibia and fibula. Electronically Signed: Rajiv Mckeon MD at 15:45 EDT , Discharge Plan Triage Chief Complaint: Trauma ED Provider: Miguel Ángel Vela Dx/Rx/DC Orders Clinical Impression: Closed head injury, Acute cervical myofascial strain, Multiple contusions, Fall (on) (from) unspecified stairs and steps, initial encounter Instructions: ED Head Injury (Adult), ED Neck Sprain or Strain Prescriptions: No Action Mirena 20 mcg/24 hours (7 yrs) 52 mg intrauterine device 1 insert intrauterine ONCE Rx Instructions: as a single dose escitalopram oxalate 20 mg tablet 20 mg PO DAILY Label Comments: take 1 tablet by mouth once daily Primary Care Provider: Tanika Bella NP Referrals: Tanika Bella NP, VERTICAL [employer] B[employer] SAW OPERATOR-C [Primary Care Provider] - 5-7 Days Disposition Disposition: Home, Self Care
== END 2022-06-04 16:15 | disposition home or self-care (01) ==
PROVIDERS: Emergency Provider Emergency Medicine; PCP Nurse Practitioner Primary Care; Visit Provider Emergency Medicine
DX: S06.9X9A Unspecified intracranial injury with loss of consciousness of unspecified duration, initial encounter (principal); S16.1XXA Strain of muscle, fascia and tendon at neck level, initial encounter; T14.8XXA Other injury of unspecified body region, initial encounter; W10.9XXA Fall (on) (from) unspecified stairs and steps, initial encounter; Y92.008 Other place in unspecified non-institutional (private) residence as the place of occurrence of the external cause
CPT/HCPCS: 70450; 72125; 73502; 73564; 73590; 99285

== ENCOUNTER → 2023-06-21 | Outpatient (CLI) | payer MEDICAID, SELFPAY | END | disposition home or self-care (01) | PROVIDERS: PCP Nurse Practitioner Primary Care; Visit Provider Obstetrics & Gynecology | DX: N76.0 Acute vaginitis (principal) | CPT/HCPCS: 87070; 87205; 87255 ==

== ENCOUNTER 2023-07-12 14:03 | Emergency (ER) | payer MEDICAID, SELFPAY ==
[2023-07-12 14:04] VITALS: BP 104/80; PULSE 88; RESP 18; TEMP 36.6; O2SAT 98
--- NOTE | 2023-07-12 14:51 | EDS_ITS ---
HPI History of Present Illness Chief Complaint: Lower Extremity Injury Detail of Chief Complaint: Knee dislocated, right Informant: patient Occured/Mechanism Comment: States she was walking to work when her knee dislocated. This is not the first time this is happened. Onset/Context/Timing Onset: Hours Context: Sudden Onset Timing: Intermittent Location: Knee right Current Severity: Mild Maximum Severity: Severe Worsened by: Unknown Relieved by: States she was driven home and it went back in the place Associated Symptoms Associated Symptoms: Positive for Loss of Funtion; Negative for Parasthesia or Weakness Narrative Narrative: Patient is a 43-year-old woman with history of psychiatric disorder who presents because her right knee was dislocated. She says it went off to the side. She states it was locked in an extended position. Patient presently complains of mild pain. She presently denies paresthesia, anesthesia or motor weakness. Prior similar symptoms: Yes Recent Illness/Hospitalization: No PFSH PFSH Medical History Bruising COVID-19 vaccine series completed Depression High ankle sprain Incomplete Left ankle sprain Non-smoker Home Medications levonorgestrel 21 mcg/24 hours (8 yrs) 52 mg intrauterine device (Mirena) 1 insert intrauterine ONCE 10/25/21 [History Last Taken Unknown] fluconazole 150 mg tablet 150 mg PO Q3D 2 doses #2 tabs 06/21/23 [Rx Last Taken Unknown] fluoxetine 20 mg capsule (Prozac) 20 mg PO DAILY 06/21/23 [History Last Taken Unknown] naproxen 500 mg tablet 500 mg PO BID #14 tabs 07/12/23 [Rx Last Taken Unknown] Allergy/AdvReac Type Severity Reaction Status Date / Time No Known Allergies Allergy Verified 07/12/23 14:04 Family History Mother Diabetes Hypertension Father Diabetes Hypertension Surgical History H/O dilation and curettage History of dental surgery Social History household members: family housing: house number of children: 2 current occupational status: employed 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 ; Denies arthralgias, back pain, myalgias or neck pain Integumentary Denies rash Neurologic Neurologic: Denies paresthesias or weakness Hematologic/Lymphatic Hematologic/Lymphatic: Denies easy bleeding or easy bruising EXAM Physical Exam Const Vital Signs: 07/12/23 14:04 Temperature 98 F Temperature Source Temporal Pulse Rate 88 Respiratory Rate 18 Blood Pressure 104/80 Blood Pressure Mean 88 Pulse Ox 98 Oxygen Delivery Method Room Air Positive well nourished and well developed; Negative for obese, cachectic or unkempt General Appearance ED: well developed and NAD; Negative for unkempt or cachectic Nutritional Appearance: Negative for cachectic or obese HEENT HEENT Narrative: Patient has poor dentition. Head is atraumatic and normocephalic. Ears are normal. Nares are patent. Eyes PERRL Eyes Narrative: Extraocular muscles are intact. Conjunctive is pink. Sclera is anicteric. Neck full ROM and supple Resp normal respiratory effort, no retractions and clear to auscultation bilaterally Cardio regular rate, regular rhythm, S1 normal heart sound, S2 normal heart sound and no murmurs GI non-tender, non-distended and no masses Auscultation: normoactive bowel sounds Palpation: soft Back/Spine no CVA tenderness Extremity normal to inspection and full ROM Extremity Narrative: No swelling. The patella is not ballotable. There is no effusion. There is no laxity with varus valgus stress testing. She complains of joint line tenderness. Modified Neha's test is negative. Gideon's test is negative. There is no pain, fullness or mass in the popliteal fossa. She is able to extend to 180 degrees and flex to approximately 90 degrees. DP PT pulse are 2+. General Extremety ED: Negative for edema General Extremity: Negative for edema Neuro oriented x3, CN's II-XII intact bilaterally, moves all extremities and no sensory deficits noted Sensorium / Orientation: alert Motor Exam: strength 5/5 throughout Plantar Reflex: Downgoing: bilateral (No clonus.) Psych Appearance: Negative for unkempt Skin no wounds Lesions: no lesions Rashes: no rashes MDM MDM MDM Narrative Medical decision making narrative: His history and physical exam is not consistent with a patella dislocation and mechanisms of the and physical findings not consistent with knee dislocation. Uncertain what she is trying to describe. We will obtain x-rays to see if there is any bony abnormality or effusion that I am not appreciating on physical exam. Radiography Chest X-Ray - ED: Read by ED Physician (You x-ray of the right knee reveals no evidence of fracture, subluxation dislocation. There is no effusion.) Treatment and Re-Evaluation Narrative: Patient was informed the cause of her pain is unknown. She was also informed clinically she did not have a subluxed patella or dislocated knee. Discharge Plan Triage Chief Complaint: Lower Extremity Injury ED Provider: Anthony Small Dx/Rx/DC Orders Clinical Impression: Acute pain of right knee, Depression Instructions: ED Knee Pain of Uncertain Cause Prescriptions: New naproxen 500 mg tablet 500 mg PO BID Qty: 14 0RF No Action Mirena 20 mcg/24 hours (7 yrs) 52 mg intrauterine device 1 insert intrauterine ONCE Rx Instructions: as a single dose fluoxetine [Prozac] 20 mg capsule 20 mg PO DAILY fluconazole 150 mg tablet 150 mg PO Q3D Qty: 2 0RF Stand Alone Forms: ED Work / School Excuse Primary Care Provider: Tanika Bella NP Referrals: Heri Han MD [Med Staff - Active Staff] - 5-7 Days Tanika Bella NP, FIELD IRRIGATION WORKER-C [Primary Care Provider] - Disposition Disposition: Home, Self Care
--- NOTE | 2023-07-12 15:45 | RAD_ITS ---
INDICATION: Trauma, knee injury, pain EXAMINATION/TECHNIQUE: X-RAY - RIGHT XR Knee Complete 4 Views or More 4 VIEWS COMPARISON: None. FINDINGS: SOFT TISSUES: No soft tissue swelling or gas. No radiopaque foreign body. BONES/JOINTS: No acute fracture. Joint spaces anatomically maintained. No sclerotic or destructive changes observed. RAD/Knee 4 or More Views IMPRESSION: No acute bony injury. Electronically Signed: Iker Villegas MD at 16:15 EST ,
== END 2023-07-12 16:19 | disposition home or self-care (01) ==
PROVIDERS: Emergency Provider Emergency Medicine; PCP Nurse Practitioner Primary Care; Visit Provider Emergency Medicine
DX: M25.561 Pain in right knee (principal); F32.A Depression, unspecified; Y93.01 Activity, walking, marching and hiking
CPT/HCPCS: 73564; 99282

== ENCOUNTER 2023-07-26 16:45 | Emergency (ER) | payer OTHER, MEDICAID, SELFPAY ==
[2023-07-26 16:46] VITALS: BP 105/73; PULSE 75; RESP 14; TEMP 36.6; O2SAT 97; BMI 23.1
--- NOTE | 2023-07-26 17:26 | EKG12_ITS ---
Test Reason : SYNCOPE Blood Pressure : / mmHG Vent. Rate : 068 BPM Atrial Rate : 068 BPM P-R Int : 152 ms QRS Dur : 072 ms QT Int : 462 ms P-R-T Axes : 043 056 067 degrees QTc Int : 491 ms Normal sinus rhythm Prolonged QT Abnormal ECG Confirmed by MAYI CHONG, DESIREE ([id number]), continuity editor CLAUDETTE SALDAÑA ([id number]) on 07/29/2023 10:39:54 AM Referred By: TAYLER Confirmed By:DESIREE SEE MD
[2023-07-26 17:33] VITALS: O2SAT 99
[2023-07-26 17:43] LABS: Absolute Lymphocyte Count 1.79 X10^3/uL (0.83-4.51); Absolute Neutrophil Count 4.9 X10^3/uL (2.0-7.7); Basophil# 0.04 X10^3/uL; Basophil% 0.5 % (0-1); Eosinophil# 0.09 X10^3/uL; Eosinophils% 1.2 % (0-5); Hematocrit 40.5 % (37-47); Hemoglobin 13.4 g/dL (12.0-15.0); Lymphocyte # 1.79 X10^3/ul (0.83-4.51); Lymphocyte % 24.5 % (19-41); Mean Corp Hgb Conc 33.1 g/dL (32-36); Mean Corpuscular Hgb 28.7 pg (27.0-32.0); Mean Corpuscular Volume 86.7 fL (81-99); Mean Platelet Vol. 9.1 fl (6.2-12.0); Monocyte# 0.47 X10^3/uL; Monocyte% 6.4 % (0-10); NRBC Flagged by Analyzer 0 % (0-5); Neutrophil # 4.88 X10^3/uL (2.7-7.7); Platelet Count 262 K/mm3 (150-450); RBC Distribution Width CV 12.9 % (11.6-14.6); RBC Distribution Width SD 40.7 fl (35.1-43.9); Red Blood Count 4.67 M/mm3 (4.2-5.4); White Blood Count 7.3 K/mm3 (4.4-11.0)
[2023-07-26 18:01] LABS: Anion Gap 2 (5-15); BUN 12 mg/dL (7-18); BUN/Creat Ratio 20.1 RATIO (10-20); Calcium,Total 8.8 mg/dL (8.5-10.1); Chloride 105 mmol/L (98-107); EST Glomerular Filtration Rate 117 mL/min (>60); Est Glom Filt Rate - Afr Amer 142 mL/min (>60); Estimated Creatinine Clearance 105.47 ml/min; Glucose 92 mg/dL (74-106); Potassium 3.7 mmol/L (3.5-5.1); Sodium Level 138 mmol/L (136-145); Troponin-I HS 4 pg/mL (3.0-54.0)
--- NOTE | 2023-07-26 18:24 | RAD_ITS ---
STUDY: X-RAY CHEST REASON FOR EXAM: Female, 43 years old. chest pain TECHNIQUE: Single AP portable view of the chest. COMPARISON: None. FINDINGS: The lungs are clear and expanded. There is no demonstrated pleural abnormality. Normal size heart. Normal mediastinum and garima. Normal visualized pulmonary arteries. Normal visualized aortic arch and descending thoracic aorta. There is a dextroscoliosis of the thoracic spine. Normal visualized ribs, clavicles, and shoulders. There is no demonstrated abnormality of the visualized soft tissue structures of the upper abdomen. RAD/Chest 1 View (Portable) IMPRESSION: No active disease. Electronically Signed: Adam Guardado MD at 18:47 EST ,
[2023-07-26 18:31] VITALS: BP 110/76; BP 116/85; BP 116/94; PULSE 69; PULSE 73; PULSE 76
--- NOTE | 2023-07-26 18:43 | EX.ED.DYSGE1 ---
HPI History of Present Illness Chief Complaint: Syncope Narrative Narrative: 43-year-old female presenting with an episode of syncope. 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 She was taking her vital signs and moving back and forth briskly. She states she started to feel hot. She started walking towards the door and felt like she was getting about. She fell striking her head on a metal chair. She states she recalls doing this and does not believe she completely went out. Had a mild headache at the time which is resolving. Patient states she has not had episode like this before. Denies any history of cardiac disease. No history of in her family of sudden cardiac . Denies any chest pain, shortness of breath. She has been otherwise healthy prior to this event. Patient states she had eaten today. PFSH PFSH Medical History Bruising COVID-19 vaccine series completed Depression High ankle sprain Incomplete Left ankle sprain Non-smoker Home Medications levonorgestrel 21 mcg/24 hours (8 yrs) 52 mg intrauterine device (Mirena) 1 insert intrauterine ONCE 10/25/21 [History Last Taken Unknown] fluconazole 150 mg tablet 150 mg PO Q3D 2 doses #2 tabs 06/21/23 [Rx Last Taken Unknown] fluoxetine 20 mg capsule (Prozac) 20 mg PO DAILY 06/21/23 [History Last Taken Unknown] naproxen 500 mg tablet 500 mg PO BID #14 tabs 07/12/23 [Rx Last Taken Unknown] Allergy/AdvReac Type Severity Reaction Status Date / Time No Known Allergies Allergy Verified 07/26/23 16:45 Family History Mother Diabetes Hypertension Father Diabetes Hypertension Surgical History H/O dilation and curettage History of dental surgery Social History household members: family housing: house number of children: 2 current occupational status: employed 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 pets and animals: Yes Smoking Status: Never smoker second hand exposure: No alcohol intake: never substance use type: does not use seatbelt use: always do you feel safe at home: Yes additional social history: - [place] ROS ROS ED Constitutional Constitutional ED: Denies chills, fever(s) or sweats Eyes Eyes: Denies blurry vision or change in vision ENT ENT ED: Denies ear pain or sore throat Cardiovascular Cardiovascular: Denies chest pain, palpitations or racing heartbeat Respiratory/Chest Respiratory/Chest: Denies cough, dyspnea or sputum Gastrointestinal Gastrointestinal: Reports nausea; Denies abdominal pain, constipation, diarrhea or vomiting Genitourinary Genitourinary ED: Denies dysuria, hematuria or urinary frequency Musculoskeletal Musculoskeletal: Denies arthralgias, myalgias or neck pain Integumentary Denies abscess, Abrasions or rash Neurologic Neurologic: Reports headache(s); Denies paresthesias or weakness Psychiatric Psychiatric: Denies anxiety, depression, suicidal ideation or suicidal thoughts Endocrine Endocrinology: Denies polydipsia or polyuria EXAM Physical Exam Const Vital Signs: 07/26/23 16:46 07/26/23 17:16 07/26/23 17:33 Temperature 98 F Temperature Source Temporal Pulse Rate 75 Pulse Rate [Lying] Pulse Rate [Sitting (for 1 minute prior to obtaining)] Pulse Rate [Standing (for 1 minute prior to obtaining)] Respiratory Rate 14 Respiratory Effort Normal Non-Labored Respiratory Pattern Normal Blood Pressure 105/73 Blood Pressure [Lying] Blood Pressure [Sitting (for 1 minute prior to obtaining)] Blood Pressure [Standing (for 1 minute prior to obtaining)] Blood Pressure Mean 83 Blood Pressure Mean [Lying] Blood Pressure Mean [Sitting (for 1 minute prior to obtaining)] Blood Pressure Mean [Standing (for 1 minute prior to obtaining)] Pulse Ox 97 99 Oxygen Delivery Method Room Air Room Air 07/26/23 18:31 07/26/23 19:00 Temperature Temperature Source Pulse Rate 68 Pulse Rate [Lying] 73 Pulse Rate [Sitting (for 1 minute prior to obtaining)] 69 Pulse Rate [Standing (for 1 minute prior to obtaining)] 76 Respiratory Rate 16 Respiratory Effort Respiratory Pattern Blood Pressure 106/67 Blood Pressure [Lying] 110/76 Blood Pressure [Sitting (for 1 minute prior to obtaining)] 116/85 H Blood Pressure [Standing (for 1 minute prior to obtaining)] 116/94 H Blood Pressure Mean 80 Blood Pressure Mean [Lying] 87 Blood Pressure Mean [Sitting (for 1 minute prior to obtaining)] 95 Blood Pressure Mean [Standing (for 1 minute prior to obtaining)] 101 Pulse Ox 99 Oxygen Delivery Method Room Air Positive well nourished General Appearance ED: NAD HEENT Reports moist mucous membranes Eyes PERRL and EOMs intact bilaterally Neck no lymphadenopathy Chest Wall inspection of chest normal Resp normal respiratory effort and clear to auscultation bilaterally Cardio regular rate and regular rhythm GI normal to inspection, nondistended, normoactive bowel sounds Neuro oriented x3 and CN's II-XII intact bilaterally Sensorium / Orientation: alert Psych mental status grossly normal Skin no rashes or lesions noted MDM MDM MDM Narrative Medical decision making narrative: 43-year-old female with episode of syncope. Has a mild headache and nausea is resolved. She is given Tylenol for her pain. He has no focal neurologic deficits or lateralizing signs symptoms. I do not believe she has a CT. EKG was performed on my interpretation shows a normal sinus rhythm with a ventricular rate of 68 bpm without sign of ischemia. Chest x-ray my interpretation shows no acute process. CBC, BMP, high-sensitivity troponin all within normal limits. Orthostatic vital signs were normal. Patient feeling well on reevaluation. I did give her Tylenol for headache and it seems to be getting better. Patient feeling better. I feel she stable for discharge at this time. I found no red flag signs or symptoms or findings that would warrant her needed further work-up or admission. Patient minimal this. She is discharged home in stable condition. Impression: 1. Near syncope 2. Closed head injury 3. Concussion Lab Data Attestation: I reviewed the patient's lab results. Labs: Laboratory Results - last 24 hr 07/26/23 17:35 WBC 7.3 RBC 4.67 Hgb 13.4 Hct 40.5 MCV 86.7 MCH 28.7 MCHC 33.1 RDW Std Deviation 40.7 RDW Coeff of Benjamín 12.9 Plt Count 262 MPV 9.1 Immature Gran % (Auto) 0.400 Neut % (Auto) 67.0 Lymph % (Auto) 24.5 Fannin % (Auto) 6.4 Eos % (Auto) 1.2 Baso % (Auto) 0.5 Absolute Neuts (auto) 4.9 Absolute Lymphs (auto) 1.79 Nucleated RBC % 0 Sodium 138 Potassium 3.7 Chloride 105 Carbon Dioxide 31.0 Anion Gap 2 L BUN 12 Creatinine 0.60 Estim Creat Clear Calc 105.47 Est GFR (MDRD) Af Amer 142 Est GFR (MDRD) Non-Af 117 BUN/Creatinine Ratio 20.1 H Glucose 92 Calcium 8.8 Troponin I High Sens 4 Radiography Diagnostic Testing: Clinical Impression(s) from Imaging Studies Chest X-Ray 07/26/23 18:24 IMPRESSION: No active disease. Electronically Signed: Adam Guardado MD at 18:47 EST , Discharge Plan Triage Chief Complaint: Syncope ED Provider: Rogelio Mueller Dx/Rx/DC Orders Instructions: ED Near-Fainting, Uncertain Cause Prescriptions: No Action Mirena 20 mcg/24 hours (7 yrs) 52 mg intrauterine device 1 insert intrauterine ONCE Rx Instructions: as a single dose fluoxetine [Prozac] 20 mg capsule 20 mg PO DAILY fluconazole 150 mg tablet 150 mg PO Q3D Qty: 2 0RF naproxen 500 mg tablet 500 mg PO BID Qty: 14 0RF Primary Care Provider: Tanika Bella NP Referrals: Tanika Bella NP, SENIOR LOGISTICS MANAGER-C [Primary Care Provider] - Disposition Disposition: Home, Self Care
[2023-07-26 19:00] VITALS: BP 106/67; PULSE 68; RESP 16; O2SAT 99
[2023-07-26] MEDS: Acetaminophen 500 MG Tablet 1000 MG PO (19:43)
[2023-07-26 19:53] VITALS: BP 105/64; PULSE 68; RESP 16; O2SAT 99
== END 2023-07-26 20:00 | disposition home or self-care (01) ==
PROVIDERS: Emergency Provider Student in an Organized Health Care Education/Training Program; PCP Nurse Practitioner Primary Care; Visit Provider Student in an Organized Health Care Education/Training Program
DX: S06.0X0A Concussion without loss of consciousness, initial encounter (principal); R55 Syncope and collapse; W18.39XA Other fall on same level, initial encounter; Y93.F9 Activity, other caregiving; Y99.0 Civilian activity done for income or pay; Y92.89 Other specified places as the place of occurrence of the external cause; F32.A Depression, unspecified; S06.0XAA Concussion with loss of consciousness status unknown, initial encounter; X58.XXXA Exposure to other specified factors, initial encounter
CPT/HCPCS: 71045; 80048; 84484; 85025; 93005; 99285

== ENCOUNTER 2023-11-02 08:16 | Emergency (ER) | payer OTHER, MEDICAID, SELFPAY ==
[2023-11-02 08:16] VITALS: BP 111/81; PULSE 92; RESP 16; TEMP 36.3; O2SAT 95; BMI 24.5
[2023-11-02 08:21] VITALS: TEMP 37.1
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
[2023-11-02] MEDS: Naproxen 250 MG Tablet 500 MG PO (08:48)
[2023-11-02 08:53] VITALS: BP 110/73; PULSE 84; RESP 18; TEMP 36.6; O2SAT 99
--- OUTSIDE RECORDS SUMMARY | 2023-11-02 08:54 | XMS RPT_ITS | CCD ---
Author Name Unknown Address [address] [place] [address] Organization [facility] Care Team Providers Care Track Subway Repair Supervisor Name Role Phone Unavailable Primary Care Provider STEFANO Fernando Primary Care Unavailable Stefano Bella Primary Care Provider [phone] Allergies Allergy Classification Reported Allergen(s) Allergy Type Date of Onset Reaction(s) Facility (1 source) Amoxicillin / Clavulanate Drug Allergy 06-21-2022 Itching, Rash [facility] Medications Completed/Discontinued Medications Medication Drug Class(es) Dates Sig (Normalized) Sig (Original) escitalopram 20 mg oral tablet (2 sources) Serotonin Reuptake Inhibitor Start: 07-03-2022 take 1 tablet by mouth once daily escitalopram oxalate (LEXAPRO) 20 mg tablet Take 20 mg by mouth once daily. 0 07/03/2022 Active Problems Problem Classification Problem Date Documented Da te Episodic/Chronic Other injuries and conditions due to external causes (1 source) Injury of right knee; Translations: [Unspecified injury of right lower leg, initial encounter] 06-30-2023 Episodic Other lower respiratory disease (1 source) Rib pain; Translations: [Pleurodynia] Episodic Results Test Name Value Interpretation Reference Range Facil ity Vital Signs Date Time Vital Sign Value Performing Clinician Faci lity 06-30-2023 12:54-0500 Body temperature 98.29 [degF] Reilly Cody APRN.CNP Work Phone: [facility] 06-30-2023 12:54-0500 Body weight 62.32 kg Reilly Cody APRN.CNP Work Phone: [facility] 06-30-2023 12:54-0500 Diastolic blood pressure 75 mm[Hg] Reilly Escobar PATIENT FINANCIAL SERVICES SPECIALIST.TALENT ENGINEER Work Phone: [facility] 06-30-2023 12:54-0500 Heart rate 92 /min Reilly Escobar PATIENT FINANCIAL SERVICES SPECIALIST.TALENT ENGINEER Work Phone: [facility] 06-30-2023 12:54-0500 Respiratory rate 18 /min Reilly Escobar PATIENT FINANCIAL SERVICES SPECIALIST.TALENT ENGINEER Work Phone: [facility] 06-30-2023 12:54-0500 SaO2% (BldA) [Mass fraction] 98 % Reilly Escobar PATIENT FINANCIAL SERVICES SPECIALIST.TALENT ENGINEER Work Phone: [facility] 06-30-2023 12:54-0500 Systolic blood pressure 113 mm[Hg] Reilly Escobar PATIENT FINANCIAL SERVICES SPECIALIST.TALENT ENGINEER Work Phone: [facility] 08-21-2022 09:08-0500 Body temperature 97.39 [degF] Reilly Escobar PATIENT FINANCIAL SERVICES SPECIALIST.TALENT ENGINEER Work Phone: [facility] 08-21-2022 09:08-0500 Body weight 70.22 kg Reilly Escobar PATIENT FINANCIAL SERVICES SPECIALIST.TALENT ENGINEER Work Phone: [facility] 08-21-2022 09:08-0500 Diastolic blood pressure 72 mm[Hg] Reilly Escobar PATIENT FINANCIAL SERVICES SPECIALIST.TALENT ENGINEER Work Phone: [facility] 08-21-2022 09:08-0500 Heart rate 63 /min Reilly Escobar PATIENT FINANCIAL SERVICES SPECIALIST.TALENT ENGINEER Work Phone: [facility] 08-21-2022 09:08-0500 Respiratory rate 18 /min Reilly Escobar PATIENT FINANCIAL SERVICES SPECIALIST.TALENT ENGINEER Work Phone: [facility] 08-21-2022 09:08-0500 SaO2% (BldA) [Mass fraction] 100 % Reilly Escobar PATIENT FINANCIAL SERVICES SPECIALIST.TALENT ENGINEER Work Phone: [facility] 08-21-2022 09:08-0500 Systolic blood pressure 110 mm[Hg] Reilly Escobar PATIENT FINANCIAL SERVICES SPECIALIST.TALENT ENGINEER Work Phone: [facility] Encounters Encounter Date Encounter Type Care Provider Facility Start: 06-30-2023 End: 06-30-2023 ambulatory STEFANO Srinivas NORA Facility:[facility] Start: 06-30-2023 End: 06-30-2023 Patient encounter procedure Reilly Cody DAYAMI.MARISOL Work Phone: [facility] Care Plan of Treatment Date Care Activity Detail Author Start: 2031 Shingles (RZV) Vaccine (1 of 2) Shingles (RZV) Vaccine (1 of 2) [facility] Start: 04-27-2025 Tetanus vaccination Tetanus (Td or Tdap) Booster [facility] Start: 04-27-2025 Urine microalbumin profile DTaP,Tdap,Td Vaccine (8 - Td or Tdap) [facility] Start: 04-26-2023 Covid-19 Vaccine ( season) Covid-19 Vaccine ( season) [facility] Start: 04-26-2023 Influenza vaccination Influenza Vaccine (#1) [facility] Start: 08-26-2022 Depression Assessment Depression Assessment [facility] Start: 05-26-2022 Influenza vaccination Influenza Vaccine (#1) [facility] Start: 04-26-2022 Influenza vaccination INFLUENZA (#1) [facility] Start: 12-27-2021 COVID-19 Vaccine (4 - Booster for Moderna series) COVID-19 Vaccine (4 - Booster for Moderna series) [facility] Start: 08-26-2021 DEPRESSION ASSESSMENT DEPRESSION ASSESSMENT [facility] Start: 2021 Mammography [facility] Start: 2021 Screening for malignant neoplasm of breast Mammography [facility] Start: 2011 HPV TESTING HPV TESTING [facility] Start: 2002 PAP TESTING PAP TESTING [facility] Start: 2002 Screening for malignant neoplasm of cervix Pap Smear [facility] Start: 02-11-2000 Urine microalbumin profile DTAP,TDAP,TD (1 - Tdap) [facility] Start: 1999 Hepatitis C screening Hepatitis C Antibody [facility] Start: 1999 HEPATITIS C SCREENING HEPATITIS C SCREENING [facility] Start: 1999 HIV SCREENING HIV SCREENING [facility] Start: 02-11-1996 HIV screening HIV Test [facility] Start: 1981 HEPATITIS B (1 of 3 - 3-dose series) HEPATITIS B (1 of 3 - 3-dose series) [facility] XR KNEE GENERAL 4V A P BOTH/PA BOTH/LAT/MERC RIGHT XR KNEE GENERAL 4V AP BOTH/PA BOTH/LAT/MERC RIGHT Radiology STAT Injury of right knee, initial encounter Ordered: 06/30/2023 [facility] Work Phone: Immunizations Immunization Date Immunization Notes Care Provider Fa cility 10-10-2021 influenza, [facility]abl e, quadriv[facility]10[facility]2021 influenza virus vacc ine, unspecified formulation [facility] 09-23-2020 Moderna (primary 12+ yrs) COVID-19 vaccine, mRNA, spike protein, LNP, PF, 100 mcg/0.5 mL (JVP=842) [facility] 08-24-2020 Moderna (primary 12+ yrs) COVID-19 vaccine, mRNA, spike protein, LNP, PF, 100 mcg/0.5 mL ([id number]=[id number]) [facility] Work Phone: 05-19-2020 influenza, injectabl e, quadrivalent, preservative free [facility] 04-28-2020 [facility]icella [facility] 03-28-2020 [facility]icella [facility] Phone: 08-31-2019 tuberculin skin test ; purified protein derivative solution, intradermal [facility] 07-13-2019 influenza, injectabl e, quadrivalent, preservative free [facility] 06-07-2018 Influenza, injectabl e, Madin Macy Canine Kidney, preservative free, quadrivalent [facility] 05-26-2018 influenza, seasonal, injectable, preservative free [facility] 01-22-2018 tuberculin skin test ; purified protein derivative solution, intradermal [facility] 05-08-2017 influenza, injectabl e, quadrivalent, preservative free [facility] 06-26-2016 influenza virus vacc ine, unspecified formulation [facility] 06-08-2016 influenza, injectabl e, quadrivalent, preservative free [facility] 03-05-2016 hepatitis B vaccine, unspecified formulation [facility] 10-03-2015 hepatitis B vaccine, unspecified formulation [facility] 08-31-2015 hepatitis B vaccine, unspecified formulation [facility] 08-31-2015 influenza, injectabl e, quadrivalent, preservative free [facility] 04-27-2015 tetanus toxoid, redu jonas diphtheria toxoid, and acellular pertussis vaccine, adsorbed [facility] 03-21-2012 tetanus toxoid, redu jonas diphtheria toxoid, and acellular pertussis vaccine, adsorbed [facility] 08-14-2011 influenza virus vacc ine, unspecified formulation [facility] 11-04-1996 diphtheria, tetanus toxoids and pertussis vaccine [facility] 02-01-1994 measles, mumps and rubella virus vaccine [facility] 01-11-1983 trivalent poliovirus vaccine, live, oral [facility] 01-09-1983 diphtheria, tetanus toxoids and pertussis vaccine [facility] 05-18-1982 measles, mumps and rubella virus vaccine [facility] 1981 diphtheria, tetanus toxoids and pertussis vaccine [facility] 1981 diphtheria, tetanus toxoids and pertussis vaccine [facility] 1981 trivalent poliovirus vaccine, live, oral [facility] 1981 diphtheria, tetanus toxoids and pertussis vaccine [facility] 1981 trivalent poliovirus vaccine, live, oral [facility] 1981 trivalent poliovirus vaccine, live, oral [facility] Payers Date Payer Category Payer Medicaid [id number] 2021 Medicaid [id number] 2021 Medicaid PENDING 2020 Unknown [employer] Michelle MCCONNELL [employer] CHRISSY MCCONNELL [id number] 2020-Present [address] [place] [address] POS [id number] Social History Date Type Detail [facility] consumption unknown [facility] Start: 1981 Sex Assigned At Not on file [facility] Start: 08-21-2022 Tobacco smoking stat [facility] Never smoked tobacco [facility] Start: 08-21-2022 Tobacco use and exposure Smokeless t obacco non-user [facility] Start: 06-30-2023 History of Social function [facility] Start: 06-30-[address] [facility] Progress note 06-30-2023 Note Date & Type Note Facility 06-30-2023 Note HNO ID: [id number] Author: Reilly Cody APRN.TALENT ENGINEER Service: ? Author Type: Nurse Practitioner Type: Progress Notes Filed: 06/30/2023 1:07 PM Note Text: Subjective HPI HPI Constanza Plata is a 43 year old female who presents today for CC of fall, right knee injury. This started this morning. Has tried nothing for relief. Symptoms are worsened by rom/walking. Risk factors hx of right knee sprain. Denies numbness/tingling of right lower extremity. .Patient presents with: Right Knee Pain: X this AM, fell onto knee No past medical history on file. No past surgical history on file. ALLERGIES Amoxicillin-Pot Clavulanate MEDICATIONS FLUoxetine (PROZAC) 20 mg capsule Take by mouth. levonorgestrel (MIRENA) 21 mcg/24 hours (8 yrs) 52 mg IUD 1 Each by INTRAUTERINE route. escitalopram oxalate (LEXAPRO) 20 mg tablet Take 20 mg by mouth once daily. (Patient not taking: Reported on 06/30/2023) No family history on file. Social History Tobacco Use Smoking status: Never Smokeless tobacco: Never ROS Objective Blood pressure 113/75, pulse 92, temperature 36.8 ?C (98.3 ?F), resp. rate 18, weight 62.3 kg (137 lb 6.4 oz), SpO2 98 %. Physical Exam Constitutional: General: She is not in acute distress. Appearance: She is not toxic-appearing or diaphoretic. HENT: Head: Normocephalic and atraumatic. Pulmonary: Effort: Pulmonary effort is normal. No accessory muscle usage or respiratory distress. Musculoskeletal: Right knee: Effusion and ecchymosis present. No swelling, deformity, erythema or lacerations. Decreased range of motion. Tenderness present. Legs: Neurological: Mental Status: She is alert and oriented to person, place, and time. ASSESSMENT/PLAN: 1. Injury of right knee, initial encounter - ICD9: 959.7, ICD10: S89.91XA No xray at time of exam. Return for xray tomorrow. Crutches offered/declined. Pain relief measures discussed at home. - XR KNEE GENERAL 4V AP BOTH/PA BOTH/LAT/MERC RIGHT Reilly Cody APRN.MARISOL [facility] History of Present illness Narrative 06-30-2023 Reilly Cody APRN.MARISOL - 06/30/2023 1:04 PM EST Note Date & Type Note Facility 06-30-2023 History of Presen t illness Narrative Images from the original note were not included. Subjective HPI HPI Constanza Plata is a 43 year old female who presents today for CC of fall, right knee injury. This started this morning. Has tried nothing for relief. Symptoms are worsened by rom/walking. Risk factors hx of right knee sprain. Denies numbness/tingling of right lower extremity. .Patient presents with: Right Knee Pain: X this AM, fell onto knee No past medical history on file. No past surgical history on file. ALLERGIES Amoxicillin-Pot Clavulanate MEDICATIONS FLUoxetine (PROZAC) 20 mg capsule Take by mouth. levonorgestrel (MIRENA) 21 mcg/24 hours (8 yrs) 52 mg IUD 1 Each by INTRAUTERINE route. escitalopram oxalate (LEXAPRO) 20 mg tablet Take 20 mg by mouth once daily. (Patient not taking: Reported on 06/30/2023) No family history on file. Social History Tobacco Use Smoking status: Never Smokeless tobacco: Never ROS Objective Blood pressure 113/75, pulse 92, temperature 36.8 C (98.3 F), resp. rate 18, weight 62.3 kg (137 lb 6.4 oz), SpO2 98 %. Physical Exam Constitutional: General: She is not in acute distress. Appearance: She is not toxic-appearing or diaphoretic. HENT: Head: Normocephalic and atraumatic. Pulmonary: Effort: Pulmonary effort is normal. No accessory muscle usage or respiratory distress. Musculoskeletal: Right knee: Effusion and ecchymosis present. No swelling, deformity, erythema or lacerations. Decreased range of motion. Tenderness present. Legs: Neurological: Mental Status: She is alert and oriented to person, place, and time. ASSESSMENT/PLAN: 1. Injury of right knee, initial encounter - ICD9: 959.7, ICD10: S89.91XA No xray at time of exam. Return for xray tomorrow. Crutches offered/declined. Pain relief measures discussed at home. - XR KNEE GENERAL 4V AP BOTH/PA BOTH/LAT/MERC RIGHT Reilly Cody APRN.TALENT ENGINEER documented in this encounter [facility] Progress note 08-21-2022 Note Date & Type Note Facility 08-21-2022 Note HNO ID: [id number] Author: Reilly Cody APRN.TALENT ENGINEER Service: ? Author Type: Nurse Practitioner Type: Progress Notes Filed: 08/21/2022 9:37 AM Note Text: Subjective HPI HPI Constanza Plata is a 42 year old female who presents today for CC of right rib pain after putting car in ditch earlier this AM. Has tried nothing for relief. Symptoms are worsened by rom of side/deep breathing. Denies cp/sob, abd pain. .Patient presents with: Head Pain Right-side: Right side pain-ditched car this am History reviewed. No pertinent past medical history. No past surgical history on file. ALLERGIES Patient has no known allergies. MEDICATIONS escitalopram oxalate (LEXAPRO) 20 mg tablet Take 20 mg by mouth once daily. No family history on file. Social History Tobacco Use Smoking status: Never Smokeless tobacco: Never ROS Objective Blood pressure 110/72, pulse 63, temperature 36.3 ?C (97.4 ?F), temperature source Tympanic, resp. rate 18, weight 70.2 kg (154 lb 12.8 oz), SpO2 100 %. Physical Exam Constitutional: General: She is not in acute distress. Appearance: She is not toxic-appearing or diaphoretic. HENT: Head: Normocephalic and atraumatic. Cardiovascular: Rate and Rhythm: Normal rate and regular rhythm. Heart sounds: Normal heart sounds, S1 normal and S2 normal. Pulmonary: Effort: Pulmonary effort is normal. Breath sounds: Normal breath sounds. Chest: Abdominal: General: Bowel sounds are normal. Palpations: Abdomen is soft. There is no hepatomegaly or splenomegaly. Tenderness: There is no abdominal tenderness. There is no guarding. Neurological: Mental Status: She is alert and oriented to person, place, and time. Gait: Gait is intact. ASSESSMENT/PLAN: 1. Rib pain on right side - ICD9: 786.50, ICD10: R07.81 Declines xray Pain relief discussed Urgent f/u for worsening s/s. Reilly Cody APRN.MARISOL [facility] History of Present illness Narrative 08-21-2022 Reilly Cody APRN.TALENT ENGINEER - 08/21/2022 9:25 AM EST Note Date & Type Note Facility 08-21-2022 History of Presen t illness Narrative Images from the original note were not included. Subjective HPI HPI Constanza Plata is a 42 year old female who presents today for CC of right rib pain after putting car in ditch earlier this AM. Has tried nothing for relief. Symptoms are worsened by rom of side/deep breathing. Denies cp/sob, abd pain. .Patient presents with: Head Pain Right-side: Right side pain-ditched car this am History reviewed. No pertinent past medical history. No past surgical history on file. ALLERGIES Patient has no known allergies. MEDICATIONS escitalopram oxalate (LEXAPRO) 20 mg tablet Take 20 mg by mouth once daily. No family history on file. Social History Tobacco Use Smoking status: Never Smokeless tobacco: Never ROS Objective Blood pressure 110/72, pulse 63, temperature 36.3 C (97.4 F), temperature source Tympanic, resp. rate 18, weight 70.2 kg (154 lb 12.8 oz), SpO2 100 %. Physical Exam Constitutional: General: She is not in acute distress. Appearance: She is not toxic-appearing or diaphoretic. HENT: Head: Normocephalic and atraumatic. Cardiovascular: Rate and Rhythm: Normal rate and regular rhythm. Heart sounds: Normal heart sounds, S1 normal and S2 normal. Pulmonary: Effort: Pulmonary effort is normal. Breath sounds: Normal breath sounds. Chest: Abdominal: General: Bowel sounds are normal. Palpations: Abdomen is soft. There is no hepatomegaly or splenomegaly. Tenderness: There is no abdominal tenderness. There is no guarding. Neurological: Mental Status: She is alert and oriented to person, place, and time. Gait: Gait is intact. ASSESSMENT/PLAN: 1. Rib pain on right side - ICD9: 786.50, ICD10: R07.81 Declines xray Pain relief discussed Urgent f/u for worsening s/s. Reilly Cody APRN.CNP documented in this encounter [facility] Evaluation note Note Date & Type Note Facility documented in this encounter [facility] Evaluation note Note Date & Type Note Facility documented in this encounter [facility] Reason for referral (narrative) Diagnostic Procedure Only (Urgent) - Pending Review Note Date & Type Note Facility Referral ID Status Reason Start Date Expiration Date Visits Requested Visits Authorized [id number] Pending Review Auto-Generat ed Referral 06/30/2023 07/29/2024 1 1 [facility] Summary Purpose Family History No Family History Records FoundNo Family History Records Found Advance Directives No Advanced Directives Records FoundNo Advanced Directives Records Found Additional Source Comments INFORMATION SOURCE (unrecogn ized section and content) DATE CREATED AUTHOR AUTHOR'S ORGANIZ ATION 06/30/2023 [facility] Source Comments (unrecognize d section and content) In the event this informatio n is protected by the Federal Confidentiality of Alcohol and Drug Abuse Patient Records regulations: The Federal rules restrict any use of the information to criminally investigate or prosecute any alcohol or drug abuse patient.[facility] the event this information is protected by the Federal Confidentiality of Alcohol and Drug Abuse Patient Records regulations: The Federal rules restrict any use of the information to criminally investigate or prosecute any alcohol or drug abuse patient.[facility] Reason for Visit (unrecogniz ed section and content) Reason Comments Right Knee Pain X this AM, fell onto knee Care Teams (unrecognized sec tion and content) FOR RECORDS PERTAINING TO PATIENTS WHO ARE OR HAVE BEEN ENROLLED IN A CHEMICAL DEPENDENCY/SUBSTANCEABUSE PROGRAM, SOME INFORMATION MAY BE OMITTED. This clinical summary was aggregated from multiple sources. Caution should be exercised in using it in the provision of clinical care. This summary normalizes information from multiple sources, and as a consequence, information in this document may materially change the coding, format and clinical context of patient data. In addition, data may be omitted in some cases. CLINICAL DECISIONS SHOULD BE BASED ON THE PRIMARY CLINICAL RECORDS. [facility]. provides no warranty or guarantee of the accuracy or completeness of information in this document.
== END 2023-11-02 08:55 | disposition home or self-care (01) ==
PROVIDERS: Emergency Provider Emergency Medicine; PCP Nurse Practitioner Primary Care; Visit Provider Emergency Medicine
DX: S16.1XXA Strain of muscle, fascia and tendon at neck level, initial encounter (principal); Z79.899 Other long term (current) drug therapy; V43.52XA Car driver injured in collision with other type car in traffic accident, initial encounter
CPT/HCPCS: 99282

== ENCOUNTER → 2025-06-01 | Outpatient (CLI) | payer OTHER, SELFPAY ==
[2025-06-04 04:07] LABS: QNTFERON TB Mitogen Value > 10.00 IU/mL (.); QNTFERON TB Nil Value 0.04 IU/mL (.); QNTFERON TB1+ Ag Value 0.04 IU/mL (.); QNTFERON TB2+ Ag Value 0.05 IU/mL (.); QNTIFERON TB Positive Criteria Negative (Negative)
== END | disposition home or self-care (01) ==
LOC: MTLAB 09:43
PROVIDERS: PCP Nurse Practitioner Primary Care; Referring Provider Physician Assistant; Visit Provider Physician Assistant
DX: Z02.1 Encounter for pre-employment examination (principal)
CPT/HCPCS: 86480